=== PATIENT | female | born 1995 | race Two or more races ===

== ENCOUNTER 2023-10-11 12:37 | Emergency (ER) | payer OTHER ==
[~2023-10-11] VITALS: Ht 165.1 cm; Wt 82.1 kg
[2023-10-11] MEDS ORDERED: LIDO30AD10 TP (14:34)
[2023-10-11] MEDS ORDERED: CYCL5TAB PO (14:34)
[2023-10-11] MEDS ORDERED: IBUP-1955 PO (14:34)
[2023-10-11] MEDS ORDERED: KETOROLAC TROMETHAMINE 15 MG/ML VIAL ONE (14:47)
[2023-10-11] MEDS: KETOROLAC TROMETHAMINE 15 MG/ML VIAL IM ONE (14:53)
[2023-10-11 15:33] VITALS: BP 120/75; TEMP 98.7; O2SAT 98
== END 2023-10-11 15:34 | disposition home or self-care (01) ==
LOC: ER 12:44
DX: S16.1XXA Strain of muscle, fascia and tendon at neck level, initial encounter (principal); M54.50 Low back pain, unspecified; V49.49XA Driver injured in collision with other motor vehicles in traffic accident, initial encounter; Y93.89 Activity, other specified; Y92.89 Other specified places as the place of occurrence of the external cause; Y99.8 Other external cause status
CPT/HCPCS: 99283; 96372; J1885

== ENCOUNTER 2024-05-10 10:36 | Emergency (ER) | payer OTHER ==
[~2024-05-10] VITALS: Ht 162.6 cm; Wt 90.7 kg
[~2024-05-10 10:36] MED LIST: CYCL5TAB PO; IBUP-1955 PO; LIDO30AD10 TP
[2024-05-10] MEDS ORDERED: ONDANSETRON HCL/PF 4 MG/2 ML VIAL ONE (12:48)
[2024-05-10] MEDS ORDERED: oxyCODONE/APAP (5/325 MG) 1 UDTAB TABLET ONE (13:08)
[2024-05-10] MEDS: oxyCODONE/APAP (5/325 MG) 1 UDTAB TABLET PO ONE (13:15)
[2024-05-10 14:08] LABS: PREGNANCY TEST URINE QUAL NEGATIVE (NEGATIVE)
[2024-05-10] MEDS ORDERED: NAPR-1164 PO (15:49)
[2024-05-10] MEDS ORDERED: CYCL5TAB PO (15:49)
[2024-05-10 15:56] VITALS: BP 135/77; TEMP 98; O2SAT 98
== END 2024-05-10 15:57 | disposition home or self-care (01) ==
LOC: ER 10:36
DX: M54.9 Dorsalgia, unspecified (principal); M25.521 Pain in right elbow; R10.2 Pelvic and perineal pain; Z79.1 Long term (current) use of non-steroidal anti-inflammatories (NSAID); Z79.899 Other long term (current) drug therapy
CPT/HCPCS: 72131-TC; 73080-TC; 84703-TC; J2405